=== PATIENT | male | born 1960 | race American Indian/Alaskan Native ===

== ENCOUNTER 2016-12-05 10:37 | Outpatient (CLI) | payer BC ==
--- NOTE | 2016-12-05 13:39 | Ultrasound Report ---
Thyroid ultrasound: The patient presents with a palpable lump in the left upper neck. Images of the thyroid gland demonstrates the right lobe to measure 18 x 21 x 46 mm and the left measures 17 x 14 x 40 mm. The isthmus has a thickness of 7 mm and there is focal hypoechogenicity in the central portion. Both thyroid lobes are homogeneous with unremarkable flow pattern on color imaging. Images over the palpable finding in the left neck is close to the submandibular gland and appears to represent a lymph node measuring 16 mm in greatest dimension. The lymph node has normal echogenic features. Both submandibular glands are generally unremarkable. Impressions: 1. The palpable finding on the left is consistent with a benign appearing lymph node. 2. Low suspicion isthmus nodule.
== END 2016-12-05 10:38 | disposition home or self-care (01) ==
LOC: SPVWC 10:37
PROVIDERS: ATTEND Family Medicine Adult Medicine
DX: E04.1 Nontoxic single thyroid nodule (principal); R94.6 Abnormal results of thyroid function studies
CPT/HCPCS: 76536